=== PATIENT | female | born 1960 | race African-American/Black ===

== ENCOUNTER 2021-02-28 14:25 | Emergency (ER) | payer BC ==
[~2021-02-28] VITALS: Ht 175.3 cm; Wt 89.1 kg
[2021-02-28] MEDS ORDERED: LISINOPRIL10 MG PO (14:44)
[2021-02-28] MEDS ORDERED: ATORVASTATIN CA10 MG PO (14:44)
[2021-02-28] MEDS ORDERED: MELOXICAM7.5 MG PO (14:44)
[2021-02-28] MEDS ORDERED: METFORMIN HCL500 MG PO (14:44)
[2021-02-28] MEDS ORDERED: SOMA350 MG PO (14:44)
[2021-02-28] MEDS ORDERED: ZOLPIDEM TARTRAT5 MG PO (14:44)
[2021-02-28] MEDS ORDERED: ASPIRIN EC81 MG PO (14:44)
== END 2021-02-28 15:21 | disposition home or self-care (01) ==
LOC: FSED 14:41
DX: B34.9 Viral infection, unspecified (principal); F17.210 Nicotine dependence, cigarettes, uncomplicated
CPT/HCPCS: 87400; 99283

== ENCOUNTER 2025-03-18 17:03 | Inpatient (IN) | payer BC ==
[~2025-03-18] VITALS: Ht 175.3 cm; Wt 104.3 kg
[~2025-03-18 17:03] MED LIST: ASPIRIN EC81 MG PO; ATORVASTATIN CA10 MG PO; LISINOPRIL10 MG PO; MELOXICAM7.5 MG PO; METFORMIN HCL500 MG PO; SOMA350 MG PO; ZOLPIDEM TARTRAT5 MG PO
[2025-03-18 18:08] LABS: BASOPHILS % 0.7 % (0.0-1.0); EOSINOPHILS % 2.4 % (0.0-6.0); LYMPHOCYTES % 9.9 % (18.0-39.1); MONOCYTES % 15.0 % (4.4-11.3); NEUTROPHILS % 71.5 % (38.7-80.0); RED CELL DISTRIBUTION WIDTH 14.6 % (11.7-14.4)
[2025-03-18] MEDS: ONDANSETRON HCL INJ 2MG/ML 2ML 2 MG/ML VIAL IV STA (18:18)
[2025-03-18] MEDS: SODIUM CHLORIDE 0.9% 1000ML 1,000 ML IV STA ×2 (18:18→21:33)
[2025-03-18 18:27] LABS: EST GLOMERULAR FILTRATION RATE 18 ML/MIN (>=60)
[2025-03-18 19:33] LABS: LYMPHOCYTES % (MANUAL) 7 % (19-48); MONOCYTES % (MANUAL) 14 % (3.4-9.0); NEUTROPHILS % (MANUAL) 77 % (40-74); PLATELET ESTIMATE ADEQUATE; PLATELET MORPHOLOGY COMMENT NORMAL; RBC MORPHOLOGY COMMENT NORMAL; REACTIVE LYMPHOCYTES 2
[2025-03-18 20:32] LABS: LEUKOCYTE ESTERASE ,URINE NEGATIVE (NEGATIVE); PROTEIN,URINE DIPSTICK TRACE (NEGATIVE); URINE UROBILINOGEN 0.2 mg/dL (0.2 - 1)
[2025-03-18 20:43] LABS: EPITHELIAL CELLS,URINE FEW /LPF; WBC,URINE (MAN) 0-5 /HPF (0-5)
[2025-03-18] MEDS ORDERED: ONDANSETRON HCL INJ 2MG/ML 2ML 2 MG/ML VIAL IV PRN (22:00)
[2025-03-18 23:10] VITALS: PULSE 91; RESP 18; TEMP 98.3
[2025-03-18 23:30] VITALS: BP 97/59; PULSE 77; PULSE 97; RESP 17; TEMP 97.9; O2SAT 94
[2025-03-18] MEDS: SODIUM CHLORIDE 0.9% 1000ML 1,000 ML IV SCH (23:59)
[2025-03-19] VITALS (24 sets, daily range): BP systolic 81–119; BP diastolic 48–83; PULSE 69–94; RESP 14–39; TEMP 98.3–98.9; O2SAT 94–100
[2025-03-19] MEDS ORDERED: PROTONIX20 MG PO (04:05)
[2025-03-19] MEDS ORDERED: LISINOPRIL40 MG PO (04:05)
[2025-03-19] MEDS ORDERED: METHOCARBAMOL500 MG PO (04:05)
[2025-03-19] MEDS ORDERED: GABAPENTIN100 MG PO (04:05)
[2025-03-19 04:46] LABS: BASOPHILS % 0.2 % (0.0-1.0); EOSINOPHILS % 3.0 % (0.0-6.0); LYMPHOCYTES % 15.0 % (18.0-39.1); MONOCYTES % 12.5 % (4.4-11.3); NEUTROPHILS % 68.8 % (38.7-80.0); RED CELL DISTRIBUTION WIDTH 14.7 % (11.7-14.4)
[2025-03-19 05:11] LABS: EST GLOMERULAR FILTRATION RATE 37.0 ML/MIN (>=60)
[2025-03-19 07:39] LABS: BAND NEUTROPHILS % (MANUAL) 4 %; EOSINOPHILS % (MANUAL) 6 % (0-7); LYMPHOCYTES % (MANUAL) 13 % (19-48); MONOCYTES % (MANUAL) 10 % (3.4-9.0); NEUTROPHILS % (MANUAL) 67 % (40-74); PLATELET ESTIMATE ADEQUATE; PLATELET MORPHOLOGY COMMENT NORMAL
[2025-03-19] MEDS ORDERED: HYDRALAZINE HCL 20 MG/ML VIAL IV PRN (13:15)
[2025-03-19] MEDS ORDERED: DEXTROSE 50% SYRINGE 50 ML IV PRN ×2 (13:15→15:00)
[2025-03-19] MEDS ORDERED: BENZONATATE 100 MG CAP PO PRN (13:15)
[2025-03-19] MEDS ORDERED: ALBUTEROL/IPRATROPIUM 3 ML NEB NEB PRN (13:15)
[2025-03-19] MEDS ORDERED: POTASSIUM CHLORIDE 20 MEQ TAB CR PO PRN (13:15)
[2025-03-19] MEDS ORDERED: LIDOCAINE 4% PATCH TP PRN (13:15)
[2025-03-19] MEDS ORDERED: SIMETHICONE 80 MG CHEW PO PRN (13:15)
[2025-03-19] MEDS ORDERED: DOCUSATE SODIUM 100 MG CAP PO PRN (13:15)
[2025-03-19] MEDS: ACETAMINOPHEN 325 MG TAB PO PRN (16:52)
[2025-03-19] MEDS: INSULIN LISPRO 100 UNIT/1 ML 3ML VIAL SQ SCH (16:53)
[2025-03-19] MEDS: ATORVASTATIN 10 MG TAB PO SCH (20:10)
[2025-03-19] MEDS: ONDANSETRON HCL INJ 2MG/ML 2ML 2 MG/ML VIAL IV PRN (20:17)
[2025-03-19] MEDS: Morphine 4mg INJECTION 4 MG/ML INJ IV PRN (20:18)
[2025-03-19] MEDS ORDERED: MELATONIN 5 MG TABLET PO PRN (21:00)
[2025-03-20] VITALS (36 sets, daily range): BP systolic 102–151; BP diastolic 60–120; PULSE 64–89; RESP 11–31; TEMP 97.7–98.7; O2SAT 90–100
[2025-03-20 05:26] LABS: BASOPHILS % 0.9 % (0.0-1.0); EOSINOPHILS % 2.2 % (0.0-6.0); LYMPHOCYTES % 24.0 % (18.0-39.1); MONOCYTES % 10.9 % (4.4-11.3); NEUTROPHILS % 60.2 % (38.7-80.0); RED CELL DISTRIBUTION WIDTH 14.8 % (11.7-14.4)
[2025-03-20 06:07] LABS: EST GLOMERULAR FILTRATION RATE 90.0 ML/MIN (>=60); PHOSPHORUS 1.5 MG/DL (2.3-4.7)
[2025-03-20] MEDS: PANTOPRAZOLE SOD 40 MG TABEC PO SCH (07:39)
[2025-03-20 10:13] LABS: EOSINOPHILS % (MANUAL) 1 % (0-7); LYMPHOCYTES % (MANUAL) 28 % (19-48); MONOCYTES % (MANUAL) 3 % (3.4-9.0); NEUTROPHILS % (MANUAL) 63 % (40-74); REACTIVE LYMPHOCYTES 5
[2025-03-20 10:14] LABS: PLATELET ESTIMATE ADEQUATE; PLATELET MORPHOLOGY COMMENT NORMAL; RBC MORPHOLOGY COMMENT NORMAL
[2025-03-20] MEDS: PEG (High)/E-LYTE SOLN 4,000 ML BTL PO ONE (16:56)
[2025-03-20] MEDS: SODIUM BICARBONATE 650 MG TAB PO SCH (16:58)
[2025-03-20 17:06] LABS: INR 0.87
[2025-03-20] MEDS: DIPHENHYDRAMINE HCL 25 MG CAP PO PRN (20:38)
[2025-03-20] MEDS: POTASSIUM PHOSPHATE 15 MM in SODIUM CHLORIDE 0.9% 250ML 250 ML IV SCH (21:57)
[2025-03-21] VITALS (22 sets, daily range): BP systolic 116–157; BP diastolic 66–93; PULSE 71–97; RESP 12–31; TEMP 97.8–98.4; O2SAT 94–100
[2025-03-21] MEDS: CITRATE OF MAGNESIA 300ML BOTTLE PO ONE ×2 (00:56→07:26)
[2025-03-21 05:14] LABS: BASOPHILS % 0.8 % (0.0-1.0); EOSINOPHILS % 0.9 % (0.0-6.0); LYMPHOCYTES % 20.9 % (18.0-39.1); MONOCYTES % 17.0 % (4.4-11.3); NEUTROPHILS % 56.8 % (38.7-80.0); RED CELL DISTRIBUTION WIDTH 15.0 % (11.7-14.4)
[2025-03-21 05:54] LABS: EST GLOMERULAR FILTRATION RATE 98 ML/MIN (>=60); PHOSPHORUS 1.5 MG/DL (2.3-4.7)
[2025-03-21 12:07] LABS: EOSINOPHILS % (MANUAL) 3 % (0-7); LYMPHOCYTES % (MANUAL) 10 % (19-48); METAMYELOCYTES % (MANUAL) 4 % (0-0); MONOCYTES % (MANUAL) 17 % (3.4-9.0); MYELOCYTES % (MANUAL) 2 % (0-0); NEUTROPHILS % (MANUAL) 64 % (40-74); PLATELET ESTIMATE ADEQUATE; PLATELET MORPHOLOGY COMMENT NORMAL; RBC MORPHOLOGY COMMENT NORMAL
[2025-03-21] MEDS ORDERED: LIDOCAINE HCL 2% LOCAL INJ 5 ML SDV VIAL INJ ONE (15:14)
[2025-03-21] MEDS ORDERED: PROPOFOL IV EMULSION 10 MG/ML 20 ML VIAL ONE ×2 (15:15→15:45)
[2025-03-21] MEDS ORDERED: HYOSCYAMINE SULFATE 0.5 MG/ML INJ ONE (15:58)
[2025-03-21 16:51] LABS: WBC,FECAL (FECAL LACTOFERRIN) POSITIVE (NEGATIVE)
[2025-03-21 17:15] LABS: CDIFF AG QUIK CHEK NEGATIVE (NEGATIVE); CDIFF TOX QUIK CHEK NEGATIVE (NEGATIVE)
[2025-03-21] MEDS: ZOLPIDEM TARTRATE 10 MG TAB PO PRN (22:29)
[2025-03-21] MEDS ORDERED: ZOLPIDEM TARTRATE 10 MG TAB PO PRN (22:30)
[2025-03-21] MEDS: POTASSIUM PHOSPHATE 15 MM in SODIUM CHLORIDE 0.9% 250ML 250 ML IV ONE (23:58)
[2025-03-22] VITALS (8 sets, daily range): BP systolic 127–150; BP diastolic 81–92; PULSE 70–91; RESP 16–25; TEMP 98–98.3; O2SAT 95–99
[2025-03-22 07:43] LABS: EST GLOMERULAR FILTRATION RATE 100 ML/MIN (>=60); PHOSPHORUS 2.1 MG/DL (2.3-4.7)
[2025-03-22] MEDS: POTASSIUM PHOSPHATE 15 MM in SODIUM CHLORIDE 0.9% 250ML 250 ML IV ONE (11:25)
[2025-03-22] MEDS ORDERED: PANTOPRAZOLE SO40 MG PO (13:16)
[2025-03-22] MEDS: PHOSPHORUS 250 MG TAB PO ONE (19:17)
== END 2025-03-22 19:40 | disposition home or self-care (01) | DRG 393 ==
LOC: ER 17:38 → ERHOLD 19:19 → ICU 23:00
PROVIDERS: ADMIT Internal Medicine; ATTEND Internal Medicine
PROC: 0DBN8ZX Excision of Sigmoid Colon, Via Natural or Artificial Opening Endoscopic, Diagnostic (ICD-10-PCS; principal; 2025-03-21 15:49)
DX: K55.039 Acute (reversible) ischemia of large intestine, extent unspecified (principal); R57.1 Hypovolemic shock; E87.1 Hypo-osmolality and hyponatremia; N17.9 Acute kidney failure, unspecified; M62.82 Rhabdomyolysis; K51.811 Other ulcerative colitis with rectal bleeding; R19.7 Diarrhea, unspecified; I10 Essential (primary) hypertension; E11.9 Type 2 diabetes mellitus without complications; E78.5 Hyperlipidemia, unspecified; M54.9 Dorsalgia, unspecified; G89.29 Other chronic pain; E66.9 Obesity, unspecified; R06.02 Shortness of breath; K59.09 Other constipation; E86.0 Dehydration; Z79.84 Long term (current) use of oral hypoglycemic drugs; Z79.82 Long term (current) use of aspirin; Z87.891 Personal history of nicotine dependence
CPT/HCPCS: 36415; 45380; 74176; 80048; 80053; 81001; 82550; 82948; 83605; 83630; 83690; 83735; 83993; 84100; 84484; 85014; 85018; 85025; 85610; 85730; 86850; 86900; 87040; 87045; 87177; 87324; 87328; 87449; 88305; 88342; 93005; 94799; 96372; 99252; 99285; J1980; J2003; J2270; J2405; J2470; J2543; J7030; J7050; P9017